=== PATIENT | male | born 1955 | race Caucasian/White ===

== ENCOUNTER 2017-03-29 07:04 | Day surgery (SDC) | payer OTHER ==
[~2017-03-29 07:04] MED LIST: CEFAZOLIN 1 GM/50 ML (PMX) 50 ML IVPB; SOD CHLORIDE 0.9% 1,000 ML IV
[2017-03-29] MEDS ORDERED: FENTAnyl 50 MCG/ML VIAL (07:35)
[2017-03-29] MEDS ORDERED: ONDANSETRON 4 MG INJ (07:35)
[2017-03-29] MEDS ORDERED: CEFAZOLIN 1 GM INJ (07:35)
[2017-03-29] MEDS ORDERED: MIDAZOLAM 1 MG/ML 2 ML INJ (07:35)
[2017-03-29] MEDS ORDERED: NEOSTIGMINE 3 MG/3 ML SYRINGE (07:35)
[2017-03-29] MEDS ORDERED: PROPOFOL 20 ML (07:35)
[2017-03-29] MEDS ORDERED: DEXAMETHASONE 4 MG/ML 1 ML INJ (07:35)
[2017-03-29] MEDS ORDERED: ROCURONIUM 50 MG INJ (07:35)
[2017-03-29] MEDS ORDERED: ROPIVACAINE 0.2% 20 ML VIAL (07:42)
[2017-03-29] MEDS ORDERED: PHENYLephrine (100 MCG/ML) 5ML SYG (08:32)
[2017-03-29] MEDS: POLYMYXIN/BACITRACIN 1L IRRIG (09:04)
[2017-03-29] MEDS ORDERED: hydrALAzine 20 MG INJ IV (09:30)
[2017-03-29] MEDS ORDERED: ALBUTEROL 0.083% (NEB) 2.5 MG/3 ML AMP HHN (09:30)
[2017-03-29] MEDS ORDERED: DIPHENHYDRAMINE 50 MG INJ IV (09:30)
[2017-03-29] MEDS ORDERED: OXYCODONE/ACETAMINOPHEN (5/325) TAB PO ×4 (09:30→10:00)
[2017-03-29] MEDS ORDERED: FENTAnyl 50 MCG/ML VIAL IV ×2 (09:30)
[2017-03-29] MEDS ORDERED: LABETALOL HCL 20MG INJ IV (09:30)
[2017-03-29] MEDS ORDERED: HYDROmorphONE (0.2 MG/ML) 10ML SYG IV ×3 (09:30)
[2017-03-29] MEDS ORDERED: EPHEDrine SULFATE 50 MG/5 ML SYG IV (09:30)
[2017-03-29] MEDS ORDERED: TRIMETHOBENZAMIDE 100 MG/ML VIAL IM (09:30)
[2017-03-29] MEDS ORDERED: IPRATROPIUM (NEB) 0.5 MG/2.5 ML AMP HHN (09:30)
[2017-03-29] MEDS ORDERED: MIDAZOLAM 1 MG/ML 2 ML INJ IV (09:30)
[2017-03-29] MEDS: BUPIVACAINE 0.25% (MPF) 30 ML INJ (09:44)
[2017-03-29] MEDS ORDERED: morphine 2 MG INJ IV (10:00)
[2017-03-29] MEDS ORDERED: KETOROLAC 30 MG INJ IV (10:00)
[2017-03-29] MEDS ORDERED: IBUPROFEN 600 MG TAB PO (10:00)
[2017-03-29] MEDS ORDERED: ONDANSETRON 4 MG INJ IV (10:00)
[2017-03-29] MEDS: ONDANSETRON 4 MG INJ IV (10:09)
[2017-03-29] MEDS: MEPERIDINE 25 MG INJ IV (10:09)
[2017-03-29] MEDS: FENTAnyl 50 MCG/ML VIAL IV ×2 (10:09→10:16)
== END 2017-03-29 13:00 | disposition home or self-care (01) ==
LOC: SDS 07:04
DX: K40.30 Unilateral inguinal hernia, with obstruction, without gangrene, not specified as recurrent (principal); E11.42 Type 2 diabetes mellitus with diabetic polyneuropathy; E78.00 Pure hypercholesterolemia, unspecified
CPT/HCPCS: 49505; 82962

== ENCOUNTER 2017-05-31 06:16 | Day surgery (SDC) | payer OTHER ==
[2017-05-31] MEDS ORDERED: PROPOFOL 60 ML (07:45)
[2017-05-31] MEDS ORDERED: LIDOCAINE 2% (SDV) 5 ML INJ (07:45)
== END 2017-05-31 10:11 | disposition home or self-care (01) ==
LOC: GIL 06:16
DX: K29.70 Gastritis, unspecified, without bleeding (principal); K64.8 Other hemorrhoids; E78.5 Hyperlipidemia, unspecified; E11.40 Type 2 diabetes mellitus with diabetic neuropathy, unspecified; Z79.84 Long term (current) use of oral hypoglycemic drugs
CPT/HCPCS: 43239; 82962; 87081